=== PATIENT | female | born 1985 | race Caucasian/White ===

== ENCOUNTER 2021-04-07 21:13 | Emergency (ER) | payer OTHER, SELFPAY ==
[2021-04-07 21:22] VITALS: BP 137/90; PULSE 82; RESP 18; TEMP 36.5; O2SAT 100
--- NOTE | 2021-04-07 21:44 | ECG_ITS ---
Measurements Intervals [place] Rate: 52 P: 31 NV: 151 QRS: 41 QRSD: 89 T: 21 QT: 428 QTc: 402 Interpretive Statements SINUS BRADYCARDIA WITH SINUS ARRHYTHMIA BASELINE ARTIFACT- I, II, III, AVR, AVL, AVF, V1 BORDERLINE ECG Electronically Signed On 04-08-2021 6:01:45 CDT by Chester Meedl D.O.
[2021-04-07 22:35] LABS: Basophils Percent Auto 0.5 % (0.2-1.2); Eosinophils Absolute Auto 0.1 K/mm3 (0-0.3); Eosinophils Percent Auto 0.8 % (0-4.4); Hematocrit 38.9 % (37.0-47.0); Hemoglobin 13.4 g/dL (12.0-15.0); Immature Granulocyte Absolute 0.03 K/mm3 (0.00-0.031); Immature Granulocyte Percent A 0.3 % (0-0.5); Lymphocytes Absolute Auto 2.84 K/mm3 (0.9-3.2); Lymphocytes Percent Auto 32.1 % (18.3-44.2); Mean Corpuscular HGB Conc 34.4 g/dl (32-36); Mean Corpuscular Hemoglobin 32.8 pg (26-34); Mean Corpuscular Volume 95.1 fl (80-100); Mean Platelet Volume 9.8 fl (7.4-10.4); Monocytes Absolute Auto 0.4 K/mm3 (0.1-0.6); Neutrophils Absolute Auto 5.4 K/mm3 (1.3-6.7); Neutrophils Percent Auto 61.3 % (45.5-73.1); Platelet Count Result 233 k/mm3 (150-375); Red Blood Count 4.09 M/mm3 (4.2-5.4); Red Cell Distribution Width 12.3 % (11.5-14.5); White Blood Count 8.9 K/mm3 (4.5-10.0)
[2021-04-07 22:44] LABS: Add Urine Microscopic? YES; Appearance Urine Cloudy (Clear); Bilirubin Urine 1+ (Negative); Blood Urine Negative (Negative); Color Urine Amber (Yellow); Glucose Urine UA Negative (Negative); Ketones Urine 1+ mg/dL (Negative); Leukocyte Esterase Ur Negative LEU/UL (Negative); Mucus Urine Heavy /lpf; Nitrate Urine Negative (Negative); Protein Urine 1+ mg/dL (Negative); Specific Grav Ur 1.028 (1.001-1.035); Squamous Epithelial Cell Urine Many /hpf (Few); WBC Urine 0-3 /hpf
[2021-04-07 22:49] LABS: Acetaminophen < 10 ug/mL (10-30); Alanine Aminotransferase 12 U/L (4-35); Albumin Level 4.3 g/dL (3.5-5.1); Alkaline Phosphatase 67 U/L (38-126); Anion Gap 11 mmol/L (8-16); Aspartate Amino Transferase 23 U/L (14-36); Bilirubin,Total 1.4 mg/dL (0.2-1.3); Blood Urea Nitrogen 12 mg/dL (7-17); Calcium 9.7 mg/dL (8.4-10.2); Carbon Dioxide 28 mmol/L (22-30); Chloride 102 mmol/L (98-107); Estimated CRCL calculation 66 ml/min; Estimated Glomerular Filt Rate 57; Ethanol < 10 mg/dL (<10); Glucose 92 mg/dL (65-105); Potassium 3.5 mmol/L (3.4-5.0); Salicylate < 1.0 mg/dL (2-20); Sodium 141 mmol/L (137-145)
--- NOTE | 2021-04-07 23:03 | ED.GENADULT ---
HPI - General Adult General Chief complaint: Psychiatric Symptoms Stated complaint: psych eval Time Seen by Provider: 04/07/21 21:45 History of Present Illness HPI narrative: Patient 35-year-old female who presents the emergency department with chief complaint of depression. Patient reports that she has been under a lot of stress lately and has been having thoughts of harming herself. Patient states that she plans to overdose states that she is feeling very overwhelmed with the stressors in her life and is currently on a antidepressant and also an anxiolytic medication. The patient reports she is not actively attempted to harm herself and reports that she wants help. Patient reports that she has had somatic symptoms with her depression has had previous episodes like this before in the past and has had nausea and vomiting. The patient states she had decreased p.o. intake since she has become progressively more depressed. Related Data Home Medications Medication Instructions Recorded Confirmed clonazepam 04/07/21 04/07/21 duloxetine mg PO 04/07/21 Allergies Allergy/AdvReac Type Severity Reaction Status Date / Time No Known Allergies Allergy Verified 04/07/21 21:28 Review of Systems Review of Systems: Narrative: A 10 system review of systems was completed on the patient and is negative except for what is stated in the HPI. Nursing and ancillary documentation was reviewed. PMFSH Past Medical History Medical History Depression Surgical History Surgical History History of wisdom tooth extraction Social History Social History Smoking packs per day: 0.5 Smoking cigarettes per day: 10.0 Smoking status: Current every day smoker Substance use type: unknown Gender identity (if verbalized by the patient): Female Exam Narrative: Exam Narrative: GENERAL: Well-appearing, well-nourished, and in no acute distress. HEAD: Normocephalic, atraumatic. EYES: PERRLA and EOMI. ENT: Nares clear, no rhinorrhea or epistaxis. Mucous membranes moist. NECK: Supple. CHEST: Clear to auscultation. No respiratory distress. HEART: Regular rate and rhythm. No murmur heard. Normal peripheral pulses. ABDOMEN: Soft, nontender, nondistended, normal active bowel sounds. EXTREMITIES: Normal range of motion. No edema. SKIN: Warm, dry, no rash. NEURO: No focal deficits. Alert and oriented x3. PSYCH: Normal mood and affect. Course Course Emergency Course: EKG is sinus bradycardia rate of [address] elevation or ST depression noted Patient is medically cleared for psychiatric evaluation Patient was seen by the mental health screener and was cleared for outpatient follow-up and was able to contract for safety Vital Signs Vital signs: Vital Signs Temperature 36.5 C 04/07/21 21:22 Pulse Rate 82 04/07/21 21:22 Respiratory Rate 18 04/07/21 21:22 Blood Pressure 137/90 04/07/21 21:22 Pulse Oximetry 100 04/07/21 21:22 Temperature 36.5 C 04/07/21 21:22 Pulse Rate 82 04/07/21 21:22 Respiratory Rate 18 04/07/21 21:22 Blood Pressure 137/90 04/07/21 21:22 Pulse Oximetry 100 04/07/21 21:22 Medical Decision Making Vital Signs Vital Signs: Vital Signs Temperature 36.5 C 04/07/21 21:22 Pulse Rate 82 04/07/21 21:22 Respiratory Rate 18 04/07/21 21:22 Blood Pressure 137/90 04/07/21 21:22 Pulse Oximetry 100 04/07/21 21:22 Temperature 36.5 C 04/07/21 21:22 Pulse Rate 82 04/07/21 21:22 Respiratory Rate 18 04/07/21 21:22 Blood Pressure 137/90 04/07/21 21:22 Pulse Oximetry 100 04/07/21 21:22 Lab Data Result diagrams: 04/07/21 22:21 04/07/21 22:21 Labs: Lab Results 04/07/21 04/07/21 04/07/21 Range/Units 22:21 22:21 22:21 WBC 8.9 (4.5-10.0
[2021-04-07 23:11] LABS: Amphetamine Screen Urine Negative (Negative); Barbiturate Screen Urine Negative (Negative); Benzodiazepines Screen Urine Negative (Negative); Cannabinoid Screen Urine Positive (Negative); Cocaine Screen Urine Negative (Negative); Methadone Screen Urine Negative (Negative); Opiate Screen Urine Negative (Negative); Phencyclidine Screen Urine Negative (Negative)
[2021-04-08] MEDS: ACETAMINOPHEN 500 MG TABLET 1000 MG PO (00:46)
[2021-04-08 01:07] VITALS: BP 128/76; PULSE 78; RESP 16; TEMP 36.2; O2SAT 98
== END 2021-04-08 01:08 | disposition home or self-care (01) ==
PROVIDERS: Emergency Provider Emergency Medicine; PCP Family Medicine
DX: F32.9 Major depressive disorder, single episode, unspecified (principal); F17.210 Nicotine dependence, cigarettes, uncomplicated; R00.1 Bradycardia, unspecified
CPT/HCPCS: 36415; 80053; 80307; 81001; 84443; 85025; 93005; 99284; A9270

== ENCOUNTER 2021-04-13 17:36 | Emergency (ER) | payer OTHER, SELFPAY ==
[2021-04-13 17:37] VITALS: BP 132/84; PULSE 120; RESP 18; TEMP 36.6; O2SAT 96
--- NOTE | 2021-04-13 17:45 | PC.NURSE ---
Arrives ambulatory steady gait for eval of R inner ankle bug bite, I hope it's not a tick . Pt has been itching area, scab has formed and surrounding erythema, no oozing noted. Pt had positive suicidal screening in triage (pt was recently seen in ED for SI and has f/u appt tomorrow with psych), SI precautions were initiated, belongings and clothing removed from room and 1:[address] Pt has been calm and cooperative, support person at bedside accompanying pt
--- NOTE | 2021-04-13 18:15 | PC.NURSE ---
ED PA at bedside for assessment.
--- NOTE | 2021-04-13 18:30 | PC.NURSE ---
OK to d/c per ED ROSA [facility], pt has f/u with psych tomorrow. Pt instructed to leave R inner ankle wound [employer]
--- NOTE | 2021-04-13 18:36 | ED.GENADULT ---
HPI - General Adult General Chief complaint: Skin/Abscess/Foreign Body Stated complaint: Bite on leg Time Seen by Provider: 04/13/21 17:45 Source: patient, family and RN notes reviewed Mode of arrival: ambulatory Limitations: no limitations History of Present Illness HPI narrative: Patient a 35-year-old female who presents for wound to the medial aspect of the right ankle patient notes small lesion unsure as to the etiology has been applying antibiotic ointment over the last couple of days with minimal improvement. Patient notes minimal discomfort. Patient with recent psych evaluation but denying any suicidal or homicidal ideation at this time and has follow-up with [place] tomorrow. Related Data Home Medications Medication Instructions Recorded Confirmed clonazepam 04/07/21 04/07/21 duloxetine mg PO 04/07/21 Allergies Allergy/AdvReac Type Severity Reaction Status Date / Time No Known Allergies Allergy Verified 04/07/21 21:28 Review of Systems Review of Systems: All systems reviewed & are unremarkable except as noted in HPI and below PMFSH Past Medical History Medical History Depression Surgical History Surgical History History of wisdom tooth extraction Social History Social History Smoking packs per day: 0.5 Smoking cigarettes per day: 10.0 Smoking status: Current every day smoker Substance use type: unknown Gender identity (if verbalized by the patient): Female Exam Narrative: Exam Narrative: GENERAL: Well-appearing, well-nourished, and in no acute distress. HEAD: Normocephalic, atraumatic. EYES: PERRLA and EOMI. ENT: Nares clear, no rhinorrhea or epistaxis. Mucous membranes moist. CHEST: Clear to auscultation. No respiratory distress. No wheezes rales or rhonchi HEART: Regular rate and rhythm. No murmur heard. EXTREMITIES: Normal range of motion. No edema. SKIN: Warm, dry, no rash. Patient with small half centimeters superficial ulcerated lesion with central scabbing no erythema or drainage NEURO: No focal deficits. Alert and oriented x3. PSYCH: Normal mood and affect. Course Course Emergency Course: Patient in the room no distress aware of case findings treatment plan and diagnosis agreeing to follow-up as instructed Vital Signs Vital signs: Vital Signs Temperature 97.8 F 04/13/21 17:37 Pulse Rate 120 H 04/13/21 17:37 Respiratory Rate 18 04/13/21 17:37 Blood Pressure 132/84 04/13/21 17:37 Pulse Oximetry 96 04/13/21 17:37 Temperature 97.8 F 04/13/21 17:37 Pulse Rate 120 H 04/13/21 17:37 Respiratory Rate 18 04/13/21 17:37 Blood Pressure 132/84 04/13/21 17:37 Pulse Oximetry 96 04/13/21 17:37 Medical Decision Making MDM Narrative Medical decision making narrative: Patient with small skin lesion of the ankle will see Dr. Bah tomorrow chest not felt appropriate for outpatient reevaluation. Patient agrees with this plan Vital Signs Vital Signs: Vital Signs Temperature 97.8 F 04/13/21 17:37 Pulse Rate 120 H 04/13/21 17:37 Respiratory Rate 18 04/13/21 17:37 Blood Pressure 132/84 04/13/21 17:37 Pulse Oximetry 96 04/13/21 17:37 Temperature 97.8 F 04/13/21 17:37 Pulse Rate 120 H 04/13/21 17:37 Respiratory Rate 18 04/13/21 17:37 Blood Pressure 132/84 04/13/21 17:37 Pulse Oximetry 96 04/13/21 17:37 Discharge Plan Discharge Clinical Impression: Visit for wound check Patient Disposition: Home, Self-Care Condition: Stable Instructions: Antibiotic Form, Acute Wounds (ED) Additional Instructions: Follow-up with Dr. Reinoso tomorrow as planned return if symptoms worsen or concerns, any increase in redness swelling pain or fever over 100.5 Any thoughts of harming yourself or others return to emergency department Clean wound wi
[2021-04-13 18:55] VITALS: BP 122/71; PULSE 90; RESP 17; TEMP 36.9; O2SAT 98
== END 2021-04-13 19:00 | disposition home or self-care (01) ==
PROVIDERS: Emergency Provider Emergency Medicine; PCP Family Medicine
DX: L98.9 Disorder of the skin and subcutaneous tissue, unspecified (principal); F32.9 Major depressive disorder, single episode, unspecified; F17.210 Nicotine dependence, cigarettes, uncomplicated
CPT/HCPCS: 99283

== ENCOUNTER 2021-08-02 19:04 | Emergency (ER) | payer OTHER, SELFPAY ==
--- NOTE | ~2021-08-02 | XR_ITS ---
EXAMINATION: XR chest 1V portable INDICATION: Cough TECHNIQUE: Portable AP chest at 2338 hours COMPARISON: None available FINDINGS: There are minimal airspace opacities of the mid and lower lung zones. There is no pleural e ffusion or pneumothorax. The cardiomediastinal silhouette is normal. IMPRESSION: 1. Minimal airspace opacities of the mid and lower lung zones, consistent with atelectasis versus pne umonia. Reviewed, dictated and finalized at location A. IMPRESSION: 1. Minimal airspace opacities of the mid and lower lung zones, consistent with atelectasis versus pneumonia.
--- NOTE | ~2021-08-02 | CT_ITS ---
EXAMINATION: CT brain wo con INDICATION: Headache COMPARISON: None TECHNIQUE: Standard unenhanced head CT. The dose-length product (DLP) was 605.33 mGy-cm. The mA was a djusted according to patient size. Iterative reconstruction technique was employed. FINDINGS: There is no intracranial hemorrhage, acute infarction, or abnormal mass lesion. The ventric les are normal. There is no abnormal mass effect or midline shift. The mcclain-white matter differentiat ion is normal. The basal cisterns are patent. The orbits are normal. The paranasal sinuses, mastoids and calvarium are normal. IMPRESSION: 1. No acute intracranial abnormality. Reviewed, dictated and finalized at location A.
[2021-08-02 19:15] VITALS: BP 129/88; PULSE 88; RESP 17; TEMP 36.4; O2SAT 98
[2021-08-02 19:24] LABS: Basophils Absolute Auto 0.1 K/mm3 (0.0-0.1); Basophils Percent Auto 0.5 % (0.2-1.2); Eosinophils Absolute Auto 0.1 K/mm3 (0-0.3); Eosinophils Percent Auto 0.5 % (0-4.4); Hematocrit 39.3 % (37.0-47.0); Immature Granulocyte Absolute 0.02 K/mm3 (0.00-0.031); Immature Granulocyte Percent A 0.2 % (0-0.5); Lymphocytes Absolute Auto 2.46 K/mm3 (0.9-3.2); Lymphocytes Percent Auto 24.6 % (18.3-44.2); Mean Corpuscular HGB Conc 35.6 g/dl (32-36); Mean Corpuscular Hemoglobin 33.2 pg (26-34); Mean Corpuscular Volume 93.1 fl (80-100); Mean Platelet Volume 9.2 fl (7.4-10.4); Monocytes Absolute Auto 0.5 K/mm3 (0.1-0.6); Monocytes Percent Auto 4.8 % (2.6-8.5); Neutrophils Percent Auto 69.4 % (45.5-73.1); Platelet Count Result 335 k/mm3 (150-375); Red Blood Count 4.22 M/mm3 (4.2-5.4); Red Cell Distribution Width 12.1 % (11.5-14.5)
[2021-08-02 19:34] LABS: Alanine Aminotransferase 12 U/L (4-35); Albumin Level 5.2 g/dL (3.5-5.1); Alkaline Phosphatase 81 U/L (38-126); Anion Gap 14 mmol/L (8-16); Aspartate Amino Transferase 27 U/L (14-36); Bilirubin,Total 1.3 mg/dL (0.2-1.3); Blood Urea Nitrogen 21 mg/dL (7-17); Calcium 10.1 mg/dL (8.4-10.2); Carbon Dioxide 21 mmol/L (22-30); Chloride 106 mmol/L (98-107); Estimated CRCL calculation 72 ml/min; Estimated Glomerular Filt Rate > 60; Glucose 113 mg/dL (65-110); Lipase 92 U/L (23-300); Sodium 141 mmol/L (137-145)
[2021-08-02 23:07] VITALS: BP 126/80; PULSE 91; O2SAT 100
--- NOTE | 2021-08-02 23:34 | ED.GENADULT ---
HPI - General Adult General Chief complaint: Nausea/Vomiting/Diarrhea Stated complaint: Multiple Complaints Time Seen by Provider: 08/02/21 23:23 Source: patient and RN notes reviewed Mode of arrival: ambulatory Limitations: no limitations History of Present Illness HPI narrative: This is a 35 year old female who presents for evaluation of nausea and vomiting. She states she developed sinus congestion over 1 week ago with frontal head pressure. She has been having associated nausea and vomiting for 1 week as well. She was evaluated at an [facility] 1 week ago and she reports being prescribed Zofran. She continues to have nausea and vomiting and she is having a bifrontal headache for 3 days now. She denies focal deficits but reports generalized weakness, lethargy because she has not been able to eat in 1 week. She denies chest pain, sob, diarrhea, fever or abdominal pain. She reports mild cough due to tickle in her throat. COVID + in February 2021. Related Data Home Medications Medication Instructions Recorded Confirmed clonazepam 04/07/21 04/07/21 duloxetine mg PO 04/07/21 Allergies Allergy/AdvReac Type Severity Reaction Status Date / Time No Known Allergies Allergy Verified 08/03/21 00:31 Review of Systems Review of Systems: All systems reviewed & are unremarkable except as noted in HPI and below Constitutional: Constitutional: Denies chills, Reports fatigue and Denies fever(s) Eyes: Eyes: Denies change in vision ENT: Reports nasal congestion Cardiovascular: Cardiovascular: Denies chest pain Respiratory: Respiratory: Reports cough and Denies dyspnea Gastrointestinal: Gastrointestinal: Denies abdominal pain, Denies diarrhea, Reports nausea and Reports vomiting Neurologic: Denies dizziness, Reports headache(s) and Denies focal weakness PMFSH Past Medical History Medical History (Updated 08/03/21 @ 03:00 by Luisa Ramachandran MD) Anxiety Depression Surgical History Surgical History History of wisdom tooth extraction Social History Social History Smoking packs per day: 0.5 Smoking cigarettes per day: 10.0 Smoking status: Current every day smoker Substance use type: unknown Gender identity (if verbalized by the patient): Female Exam Narrative: GENERAL: Well-appearing, well-nourished, and in no acute distress. HEAD: Normocephalic, atraumatic EYES: PERRLA and EOMI, conjunctiva clear without discharge EARS: TM's clear bilaterally without erythema or dullness NOSE: Nares clear, no rhinorrhea or epistaxis THROAT:Mucous membranes moist, Oropharynx normal without erythema, exudate, peritonsillar swelling or fluctuance NECK: Supple, without lymphadenopathy or mass RESPIRATORY: No respiratory distress, Airway patent, Respirations non-labored, Clear to auscultation without rales, rhonchi or wheeze HEART: Regular rate and rhythm. No murmur heard. Normal peripheral pulses. ABDOMEN: Soft, nontender, nondistended, normal active bowel sounds. No masses. No rebound or guarding, No organomegaly. EXTREMITIES: No edema, normal strength with full range of motion. SKIN: Warm, dry, normal color without rash NEURO: Alert and oriented x3. CN 2-12 grossly intact. No focal deficits. PSYCH: Normal mood and affect. Course Reevaluation(s) Reevaluation #1: Patient has been doing better. labs and CT are unremakable unremarkable. She possibly has pneumonia She will be tested for covid Date: 08/03/21 Time: 02:56 Vital Signs Vital signs: Vital Signs Temperature 97.5 F L 08/02/21 19:15 Pulse Rate 88 08/02/21 19:15 Respiratory Rate 17 08/02/21 19:15 Blood Pressure 129/88 08/02/21 19:15 Pulse Oximetry 98 08/02/21 19:15 Temperature 97.5 F L 08/02/21 19:15 Pulse Rate 82 08/03/21 03:10 Respiratory Rate 16 08/03/21 03:10 Blood Pressure 128/82 08/03/21 03:1
[2021-08-03] MEDS: SODIUM CHLORIDE 0.9% IV 1,000 ML 999 ML IV CONT (00:36)
[2021-08-03] MEDS: KETOROLAC 30 MG/ML VIAL (*BKC) IV PUSH (00:37)
[2021-08-03] MEDS: METOCLOPRAMIDE HCL INJ 10 MG/2 ML VIAL IV PUSH (00:38)
[2021-08-03] MEDS: diphenhydrAMINE HCl INJ 50 MG/ML VIAL 25 MG IV PUSH (00:39)
[2021-08-03] MEDS: LORazepam INJ (*CRX) 2 MG/ML VIAL 0.5 MG IV PUSH (01:29)
[2021-08-03 01:45] VITALS: BP 118/75; PULSE 66; RESP 14; O2SAT 100
[2021-08-03 02:41] LABS: Add Urine Microscopic? YES; Appearance Urine Turbid (Clear); Bilirubin Urine 1+ (Negative); Blood Urine Negative (Negative); Color Urine Yellow (Yellow); Glucose Urine UA Negative (Negative); Ketones Urine Trace mg/dL (Negative); Leukocyte Esterase Ur Negative LEU/UL (Negative); Mucus Urine Heavy /lpf; Nitrate Urine Negative (Negative); Protein Urine 2+ mg/dL (Negative); Squamous Epithelial Cell Urine Many /hpf (Few)
[2021-08-03 02:54] LABS: Specific Grav Ur 1.034 (1.001-1.035)
[2021-08-03 03:10] VITALS: BP 128/82; PULSE 82; RESP 16; O2SAT 98
[2021-08-04 01:27] LABS: SARS-CoV-2 RNA PCR Negative
== END 2021-08-03 03:09 | disposition home or self-care (01) ==
PROVIDERS: Emergency Medicine; Emergency Provider General Practice; PCP Family Medicine
DX: J18.9 Pneumonia, unspecified organism (principal); R51.9 Headache, unspecified; E86.0 Dehydration; Z20.822 Contact with and (suspected) exposure to COVID-19; F17.210 Nicotine dependence, cigarettes, uncomplicated
CPT/HCPCS: 36415; 70450; 71045; 80053; 81001; 81025; 83690; 85025; 96361; 96374; 96375; 99284; C9803; J1200; J1885; J2060; J2765; J7030; U0003; U0005

== ENCOUNTER 2021-10-03 14:14 | Emergency (ER) | payer OTHER, SELFPAY ==
--- NOTE | ~2021-10-03 | XR_ITS ---
XR chest 1V portable 10/03/2021 15:54 Indication: Cough and body aches Procedure: AP portable chest Comparison: 08/02/2021 Findings: Heart size normal. No focal air space disease, pulmonary edema, pleural effusion or suspect ed pneumothorax. No acute osseous abnormality. Impression: 1: No acute cardiopulmonary disease. Reviewed, dictated and finalized at location A. [employer] STUDIES DIRECTOR Impression: 1: No acute cardiopulmonary disease.
[2021-10-03 14:26] VITALS: BP 111/82; PULSE 108; RESP 17; TEMP 37.2; O2SAT 98
[2021-10-03] MEDS: SODIUM CHLORIDE 0.9% IV 1,000 ML 999 ML IV CONT (15:51)
[2021-10-03] MEDS: ONDANSETRON INJ 4 MG/2 ML VIAL IV PUSH (15:51)
[2021-10-03 15:59] LABS: Basophils Percent Auto 0.5 % (0.2-1.2); Eosinophils Percent Auto 0.7 % (0-4.4); Hematocrit 38.4 % (37.0-47.0); Hemoglobin 13.2 g/dL (12.0-15.0); Immature Granulocyte Absolute 0.02 K/mm3 (0.00-0.031); Immature Granulocyte Percent A 0.3 % (0-0.5); Lymphocytes Absolute Auto 1.08 K/mm3 (0.9-3.2); Lymphocytes Percent Auto 17.7 % (18.3-44.2); Mean Corpuscular HGB Conc 34.4 g/dl (32-36); Mean Corpuscular Hemoglobin 32.6 pg (26-34); Mean Corpuscular Volume 94.8 fl (80-100); Mean Platelet Volume 9.7 fl (7.4-10.4); Monocytes Absolute Auto 0.4 K/mm3 (0.1-0.6); Monocytes Percent Auto 6.7 % (2.6-8.5); Neutrophils Absolute Auto 4.5 K/mm3 (1.3-6.7); Neutrophils Percent Auto 74.1 % (45.5-73.1); Platelet Count Result 160 k/mm3 (150-375); Red Blood Count 4.05 M/mm3 (4.2-5.4); Red Cell Distribution Width 11.4 % (11.5-14.5); White Blood Count 6.1 K/mm3 (4.5-10.0)
[2021-10-03 16:09] LABS: Anion Gap 7 mmol/L (8-16); Blood Urea Nitrogen 13 mg/dL (7-17); Calcium 9.3 mg/dL (8.4-10.2); Carbon Dioxide 26 mmol/L (22-30); Chloride 100 mmol/L (98-107); Estimated CRCL calculation 80 ml/min; Estimated Glomerular Filt Rate > 60; Glucose 101 mg/dL (65-110); Potassium 3.6 mmol/L (3.4-5.0); Sodium 133 mmol/L (137-145)
[2021-10-03 16:55] LABS: Add Urine Microscopic? YES; Appearance Urine Cloudy (Clear); Bilirubin Urine 1+ (Negative); Blood Urine Negative (Negative); Color Urine Amber (Yellow); Glucose Urine UA Negative (Negative); Ketones Urine Trace mg/dL (Negative); Leukocyte Esterase Ur Trace LEU/UL (Negative); Mucus Urine Heavy /lpf; Nitrate Urine Negative (Negative); Protein Urine 2+ mg/dL (Negative); RBC Urine 21-50 /hpf (0-2); Specific Grav Ur 1.029 (1.001-1.035); Squamous Epithelial Cell Urine Many /hpf (Few); WBC Urine 16-20 /hpf
--- NOTE | 2021-10-03 17:33 | ED.GENADULT ---
HPI - General Adult General Chief complaint: Upper Respiratory Infection Stated complaint: covid symptoms Time Seen by Provider: 10/03/21 15:28 History of Present Illness HPI narrative: Patient is a 35-year-old who presents ER with multiple issues. 2 days ago she began having subjective fevers as well as chills and fatigue. She is having cramping of her back and neck. She is also experiencing urinary frequency and dysuria. She also endorses nausea and vomiting. No diarrhea. No abdominal pain. No known sick contacts. Concerned she could have Covid but this feels different than when she had Covid in February. Related Data Home Medications Medication Instructions Recorded Confirmed clonazepam 04/07/21 04/07/21 duloxetine mg PO 04/07/21 Allergies Allergy/AdvReac Type Severity Reaction Status Date / Time No Known Allergies Allergy Verified 10/03/21 14:26 Review of Systems Review of Systems: All systems reviewed & are unremarkable except as noted in HPI and below Constitutional: Constitutional: Reports chills, Reports fatigue and Reports fever(s) Cardiovascular: Cardiovascular: Denies chest pain, Denies rapid heart rate and Denies radiating jaw, neck or arm pain Respiratory: Respiratory: Denies cough and Denies dyspnea Gastrointestinal: Gastrointestinal: Denies abdominal pain, Reports nausea and Reports vomiting Genitourinary: Genitourinary: Denies abnormal vaginal bleeding, Reports nocturia, Reports dysuria and Denies flank pain PMFSH Past Medical History Medical History (Updated 10/03/21 @ 17:37 by Lon Simmons MD) Anxiety Depression Surgical History Surgical History History of wisdom tooth extraction Social History Social History Smoking packs per day: 0.5 Smoking cigarettes per day: 10.0 Smoking status: Current every day smoker Substance use type: unknown Gender identity (if verbalized by the patient): Female Exam Narrative: GENERAL: Well-appearing, well-nourished, and in no acute distress. HEAD: Normocephalic, atraumatic. CHEST: Clear to auscultation. No respiratory distress. HEART: Regular rate and rhythm. Normal peripheral pulses. ABDOMEN: Soft, nontender, nondistended. Back: No reproducible midline or paraspinal muscular tenderness. EXTREMITIES: Normal range of motion. No edema. SKIN: Warm, dry, no rash. NEURO: Alert and oriented x3. PSYCH: Normal mood and affect. Course Course Emergency Course: Unremarkable evaluation. Hydrated and feels improved. Discharge with oral antibiotics for possible UTI. Covid test pending. Vital Signs Vital signs: Vital Signs Temperature 99 F 10/03/21 14:26 Pulse Rate 108 H 10/03/21 14:26 Respiratory Rate 17 10/03/21 14:26 Blood Pressure 111/82 10/03/21 14:26 Pulse Oximetry 98 10/03/21 14:26 Temperature 99 F 10/03/21 14:26 Pulse Rate 108 H 10/03/21 14:26 Respiratory Rate 17 10/03/21 14:26 Blood Pressure 111/82 10/03/21 14:26 Pulse Oximetry 98 10/03/21 14:26 Medical Decision Making Vital Signs Vital Signs: Vital Signs Temperature 99 F 10/03/21 14:26 Pulse Rate 108 H 10/03/21 14:26 Respiratory Rate 17 10/03/21 14:26 Blood Pressure 111/82 10/03/21 14:26 Pulse Oximetry 98 10/03/21 14:26 Temperature 99 F 10/03/21 14:26 Pulse Rate 108 H 10/03/21 14:26 Respiratory Rate 17 10/03/21 14:26 Blood Pressure 111/82 10/03/21 14:26 Pulse Oximetry 98 10/03/21 14:26 Lab Data Result diagrams: 10/03/21 15:49 10/03/21 15:49 Labs: Lab Results 10/03/21 10/03/21 10/03/21 Range/Units 15:49 15:49 15:49 WBC 6.1 (4.5-10.0) K/mm3 RBC 4.05 L (4.2-5.4) M/mm3 Hgb 13.2 (12.0-15.0) g/dL Hct 38.4 (37.0-47.0) % MCV 94.8 (80-100) fl MCH 32.6 (26-34) pg MCHC 34.4 (32-36) g/dl RDW 11.4 L (11.5-14.5)
[2021-10-03 18:12] VITALS: BP 122/76; PULSE 73; RESP 16; O2SAT 98
[2021-10-04 20:05] LABS: SARS-CoV-2 RNA PCR Negative
== END 2021-10-03 18:15 | disposition home or self-care (01) ==
PROVIDERS: Emergency Provider Emergency Medicine; PCP Family Medicine
DX: N39.0 Urinary tract infection, site not specified (principal); Z20.822 Contact with and (suspected) exposure to COVID-19; F41.9 Anxiety disorder, unspecified; F32.A Depression, unspecified; F17.210 Nicotine dependence, cigarettes, uncomplicated
CPT/HCPCS: 36415; 71045; 80048; 81001; 85025; 87086; 87088; 96361; 96374; 99284; C9803; J2405; J7030; U0003; U0005

== ENCOUNTER 2022-02-09 18:21 | Emergency (ER) | payer OTHER, SELFPAY ==
[2022-02-09 18:30] VITALS: BP 135/80; PULSE 111; RESP 16; TEMP 36.9; O2SAT 100
--- NOTE | 2022-02-09 18:30 | ED.URI ---
HPI - URI/Sore Throat General Chief Complaint: Nausea/Vomiting/Diarrhea Stated Complaint: VOMITING Time Seen by Provider: 02/09/22 18:25 Source: patient and RN notes reviewed History of Present Illness HPI Narrative: Patient is a 36-year-old female who presents the urgent care with complaints of vomiting and nausea. Patient also reports of a runny nose they. States that the last thing she ate was out of the restaurant and ate potato skins. Patient states that her symptoms have improved however she has missed work now for a few days. States that she has not vomited in the last 24 hours. Patient also reports of fatigue. States that she has not had an appetite but has been able to keep down fluids. Currently denies of any abdominal pain or diarrhea. Denies any recent fevers. No other acute complaints. No acute distress noted. Patient aware of the plan of care. Some parts of this dictation were generated by voice recognition software and may contain typographical and/or grammatical inaccuracies. Related Data Home Medications Medication Instructions Recorded Confirmed clonazepam 04/07/21 04/07/21 duloxetine mg PO 04/07/21 Allergies Allergy/AdvReac Type Severity Reaction Status Date / Time No Known Allergies Allergy Verified 10/03/21 14:26 Review of Systems Review of Systems: CONSTITUTIONAL: Denies fever, chills, or sweats. EYES: Denies visual changes, redness, or discharge. ENT: Denies congestion, sore throat, or otalgia. Reports of rhinorrhea CARDIOVASCULAR: Denies chest pain, palpitations, or edema. RESPIRATORY: Denies cough or dyspnea. GASTROINTESTINAL: Reports of intermittent nausea and vomiting GENITOURINARY: Denies dysuria or hematuria. SKIN: Denies rash or itching. MUSCULOSKELETAL: Denies back pain, joint pain, or myalgia. NEUROLOGIC: Denies headache, numbness, or weakness. All other systems reviewed are negative, except as documented in HPI. [facility] Past Medical History Medical History (Updated 02/09/22 @ 18:55 by JORDEN Galindo) Anxiety Depression Surgical History Surgical History History of wisdom tooth extraction Social History Social History Smoking packs per day: 0.5 Smoking cigarettes per day: 10.0 Smoking status: Current every day smoker Substance use type: unknown Gender identity (if verbalized by the patient): Female Comments At the time of my signature, I reviewed and agree with the nursing past medical, surgical, social, and family history. There is no relevant family history pertinent to the patient complaint. Exam Narrative: GENERAL: This is a well-nourished, well-developed patient, in no apparent distress. HEAD: normocephalic, atraumatic. EYES: PERRL. Sclera clear/white. Vision is grossly intact. EARS: External ears normal, auditory canals clear and without drainage, TMs normal without perforation. Hearing grossly intact. NOSE: External nose normal with no obvious nasal discharge, nares without redness, no rhinorrhea. THROAT: Mucous membranes moist, posterior pharynx clear. Moderate postnasal drainage NECK: Neck supple CARDIOVASCULAR: Regular rate and rhythm without murmurs, gallops, or rubs. RESPIRATORY: Clear to auscultation. Breath sounds equal bilaterally. No wheezes, rales, or rhonchi. GASTROINTESTINAL: Abdomen soft, non-tender, nondistended. Bowel sounds are hyper active. No hepato-splenomegaly, or palpable masses. No guarding. SKIN: warm, intact with no suspicious lesions or rash, good texture and turgor. NEURO: awake, alert, and oriented to person, place and time. There were no obvious focal neurologic abnormalities. EXTREMITIES: No clubbing, cyanosis, or edema. Course Course Level of Care: Express Care Visit Vital Signs Vital signs: Vital Signs Temperature 98.5 F 02/09/22 18:30 Pulse Rate 111 H 02/09/22 18:30 Respiratory Rate
== END 2022-02-09 19:00 | disposition home or self-care (01) ==
PROVIDERS: Emergency Provider Nurse Practitioner Family; PCP Family Medicine
DX: R11.2 Nausea with vomiting, unspecified (principal); F17.210 Nicotine dependence, cigarettes, uncomplicated; F41.9 Anxiety disorder, unspecified
CPT/HCPCS: 87804; 99213; G0463

== ENCOUNTER 2022-02-19 11:36 | Emergency (ER) | payer OTHER, SELFPAY ==
[2022-02-19 11:54] VITALS: BP 131/77; PULSE 86; RESP 16; TEMP 36.6; O2SAT 99
--- NOTE | 2022-02-19 12:00 | ED.GENADULT ---
HPI - General Adult General Chief complaint: Urogenital-Female Stated complaint: std testing Source: patient Mode of arrival: ambulatory Limitations: no limitations History of Present Illness HPI narrative: Patient presents requesting STD testing. She states she had unprotected vaginal intercourse two weeks ago. She is only sexually active with men. Denies recent oral/anal intercourse. She denies any vaginal bleeding/discharge, sore throat, rectal pain, abdominal pain, fever, chills, nausea, or vomiting. She has an IUD and, therefore, is unsure date of LMP. She does not believe that male sex partner is symptomatic. She denies any additional complaints or concerns. Related Data Home Medications Medication Instructions Recorded Confirmed clonazepam 04/07/21 04/07/21 duloxetine mg PO 04/07/21 Allergies Allergy/AdvReac Type Severity Reaction Status Date / Time No Known Allergies Allergy Verified 10/03/21 14:26 Review of Systems Review of Systems: CONSTITUTIONAL: Denies fever, chills, or sweats. EYES: Denies visual changes, redness, or discharge. ENT: Denies rhinorrhea, congestion, sore throat, or otalgia. CARDIOVASCULAR: Denies chest pain, palpitations, or edema. RESPIRATORY: Denies cough or dyspnea. GASTROINTESTINAL: Denies abdominal pain, nausea, vomiting, or diarrhea. GENITOURINARY: Denies dysuria or hematuria. SKIN: Denies rash or itching. MUSCULOSKELETAL: Denies back pain, joint pain, or myalgia. NEUROLOGIC: Denies headache, numbness, dizziness, or weakness. PSYCHIATRIC: Denies anxiety or depression. [facility] Past Medical History Medical History Anxiety Depression Surgical History Surgical History History of wisdom tooth extraction Family History Family History Mother No significant past medical history Social History Social History Smoking packs per day: 0.5 Smoking cigarettes per day: 10.0 Smoking status: Current every day smoker Alcohol intake: current Alcohol use details: intermittent ETOH abuse Substance use type: unknown Gender identity (if verbalized by the patient): Female Sexual Orientation (if Verbalized by the Patient): Straight or Heterosexual Spiritual care concerns: No Exam Narrative: GENERAL: Well-appearing, well-nourished, and in no acute distress. HEAD: Normocephalic, atraumatic. EYES: PERRLA and EOMI. ENT: Nares clear, no rhinorrhea or epistaxis. Mucous membranes moist. Oropharynx without tonsillar hypertrophy exudate or other lesions. Bilateral TMs pearly mcclain nonbulging NECK: Supple. No adenopathy or masses. No carotid bruits or JVD CHEST: Clear to auscultation. No respiratory distress. No wheezes rales or rhonchi HEART: Regular rate and rhythm. No murmur heard. Normal peripheral pulses. ABDOMEN: Soft, nontender, nondistended, normal active bowel sounds. EXTREMITIES: Normal range of motion. No edema. SKIN: Warm, dry, no rash. NEURO: No focal deficits. Alert and oriented x3. PSYCH: Normal mood and affect. Course Course Emergency Course: Urine dipstick performed without evidence of infection. She does not have any vaginal discharge or sore throat. I offered to perform pelvic exam. She preferred to run testing off urine. She should have comprehensive STI testing performed. She should follow up outpatient for further evaluation and treatment and return for worsening symptoms. Pt in agreement with plan of care. Level of Care: Express Care Visit Vital Signs Vital signs: Vital Signs Temperature 36.6 C 02/19/22 11:54 Pulse Rate 86 02/19/22 11:54 Respiratory Rate 16 02/19/22 11:54 Blood Pressure 131/77 02/19/22 11:54 Pulse Oximetry 99 02/19/22 11:54 Temperature 36.6 C 02/19/22 11:54 Pulse
== END 2022-02-19 12:06 | disposition home or self-care (01) ==
PROVIDERS: Emergency Provider Nurse Practitioner; PCP Family Medicine
DX: Z11.3 Encounter for screening for infections with a predominantly sexual mode of transmission (principal); F17.210 Nicotine dependence, cigarettes, uncomplicated; F41.9 Anxiety disorder, unspecified
CPT/HCPCS: 81003; 87491; 87591; 87661; 99214; G0463

== ENCOUNTER 2022-06-01 20:14 | Emergency (ER) | payer OTHER, SELFPAY ==
--- NOTE | ~2022-06-01 | XR_ITS ---
EXAM: [id number] DATE: 06/01/2022 21:53 HISTORY: NECK PAIN, NO KNOWN INJURIES . COMPARISON: None available. FINDINGS: Craniocervical association and atlantoaxial joint are normal. No prevertebral soft tissue swelling. Focal cervical kyphosis centered at C3-4. 3 mm anterolisthesis of C3 on C4. Mild disc heigh t loss at C4-5 and C5-6, with mild marginal osteophytosis at C4-5. Multilevel mild uncovertebral join t hypertrophy. Normal facets and posterior elements. IMPRESSION: No definite acute fracture or traumatic malalignment in the cervical spine. Grade 1 anter olisthesis of C3 on C4, presumably on a degenerative basis. Mild mid cervical spine degenerative disc disease. Reviewed, dictated and finalized at location K. IMPRESSION: No definite acute fracture or traumatic malalignment in the cervica l spine. Grade 1 anterolisthesis of C3 on C4, presumably on a degenerative basi s. Mild mid cervical spine degenerative disc disease.
[2022-06-01 20:20] VITALS: BP 147/98; PULSE 80; RESP 18; TEMP 36.4; O2SAT 100
--- NOTE | 2022-06-01 20:56 | ED.NECK ---
HPI - Neck Pain/Injury General Chief Complaint: Neck Pain/Injury Stated Complaint: neck pain Time Seen by Provider: 06/01/22 20:34 History of Present Illness HPI Narrative: Patient is a 36-year-old female here for evaluation of atraumatic neck pain for the past 4 days. States that the pain has come on gradually, is present in her paraspinal muscles in her cervical spine, worse with turning her head. Feels like a muscle tightness; has been very active recently, states she has been chasing her kids around. Patient came into the ED today because she now has a diffuse headache, worse across her forehead. No visual changes, fevers, chills, nausea, vomiting, abdominal pain. No history of IVDU. Related Data Home Medications Medication Instructions Recorded Confirmed clonazepam 1 mg tablet 04/07/21 04/07/21 duloxetine 60 mg capsule,delayed mg PO 04/07/21 release Allergies Allergy/AdvReac Type Severity Reaction Status Date / Time No Known Allergies Allergy Verified 06/01/22 20:24 Review of Systems Review of Systems: Gen: Denies fevers or chills Eyes: Denies eye pain or visual change ENT: Denies congestion Respiratory: Denies shortness of breath or cough CV: Denies chest pain or palpitations GI: Denies abdominal pain nausea, emesis or diarrhea : denies burning, urgency, frequency or hematuria Musculoskeletal: Reports neck pain. Neuro: Reports neck pain, headache. Denies numbness, tingling, weakness or focal weakness Skin: Denies rash Except as documented, all other systems reviewed and negative [facility] Past Medical History Medical History Anxiety Depression Surgical History Surgical History History of wisdom tooth extraction Family History Family History Mother No significant past medical history Social History Social History Smoking packs per day: 0.5 Smoking cigarettes per day: 10.0 Smoking status: Current every day smoker Alcohol intake: current Alcohol use details: intermittent ETOH abuse Substance use type: unknown Gender identity (if verbalized by the patient): Female Sexual Orientation (if Verbalized by the Patient): Straight or Heterosexual Spiritual care concerns: No Exam Narrative: APPEARANCE: Well appearing, no pain in distress, well-nourished. Head: Normocephalic and atraumatic. EYES: PERRLA/EOMI, conjunctivae clear NOSE: No nasal drainage EARS: External ear normal in appearance THROAT: Oropharynx is clear. Mucous membranes are moist. NECK: Supple. No adenopathy, no masses. No meningismus. RESPIRATORY: Airway patent, respirations nonlabored. Clear to auscultation bilaterally, no rales, rhonchi, wheezing. CARDIOVASCULAR: Regular rate and rhythm without murmurs, rubs, or gallops. ABDOMINAL: Normoactive bowel sounds. Soft, nontender, nondistended. No rebound tenderness or guarding. MUSCULOSKELETAL: No midline tenderness along C-spine. Cervical paraspinal muscles are tight. Full range of motion in neck. NEURO: Cranial nerves II through XII intact. Normal speech. SKIN: Skin is warm and dry. No rashes. PSYCHIATRIC: Normal affect/mood. Course Vital Signs Vital signs: Vital Signs Temperature 97.5 F L 06/01/22 20:20 Pulse Rate 80 06/01/22 20:20 Respiratory Rate 18 06/01/22 20:20 Blood Pressure 147/98 H 06/01/22 20:20 Pulse Oximetry 100 06/01/22 20:20 Oxygen Delivery Room Air 06/01/22 20:20 Temperature 97.5 F L 06/01/22 20:20 Pulse Rate 80 06/01/22 20:20 Respiratory Rate 16 06/01/22 23:05 Blood Pressure 147/85 H 06/01/22 23:05 Pulse Oximetry 98 06/01/22 23:05 Oxygen Delivery Room Air 06/01/22 20:20 MDM - Neck Pain/Injury MDM Narrative Medical decision making narrative: 36-year-old
[2022-06-01] MEDS: KETOROLAC 15 MG/ML VIAL (*BKC) IV PUSH (21:02)
[2022-06-01] MEDS: SODIUM CHLORIDE 0.9% IV 1,000 ML 999 ML IV CONT (21:02)
[2022-06-01] MEDS: CYCLOBENZAPRINE HCL 10 MG TABLET PO (21:58)
[2022-06-01] MEDS: PROCHLORPERAZINE EDISYLATE 10 MG/2 ML VIAL IV PUSH (22:21)
[2022-06-01] MEDS: diphenhydrAMINE HCl INJ 50 MG/ML VIAL 25 MG IV PUSH (22:21)
[2022-06-01 23:05] VITALS: BP 147/85; RESP 16; O2SAT 98
== END 2022-06-01 23:07 | disposition home or self-care (01) ==
PROVIDERS: Emergency Provider Emergency Medicine; PCP Family Medicine
DX: S16.1XXA Strain of muscle, fascia and tendon at neck level, initial encounter (principal); R51.9 Headache, unspecified; F17.210 Nicotine dependence, cigarettes, uncomplicated; F41.9 Anxiety disorder, unspecified; F32.9 Major depressive disorder, single episode, unspecified; X58.XXXA Exposure to other specified factors, initial encounter
CPT/HCPCS: 72040; 96361; 96372; 96374; 96375; 99284; A9270; J0780; J1200; J1885; J7030

== ENCOUNTER 2022-10-23 14:33 | Emergency (ER) | payer OTHER, SELFPAY ==
[2022-10-23 14:36] VITALS: BP 113/64; PULSE 85; RESP 18; TEMP 36.3; O2SAT 99
[2022-10-23 15:26] LABS: Influenza A QL RT-PCR Negative (Negative); Influenza B QL RT-PCR Negative (Negative); RSV RNA, RT-PCR Negative (Negative); SARS-CoV-2 RNA PCR Negative
--- NOTE | 2022-10-23 16:13 | PC.NURSE ---
Patient did not answer page to be roomed
== END 2022-10-23 16:13 | disposition left against medical advice (07) ==
LOC: ANHED 17:02
PROVIDERS: Emergency Provider Emergency Medicine; PCP Family Medicine
DX: J06.9 Acute upper respiratory infection, unspecified (principal); Z20.822 Contact with and (suspected) exposure to COVID-19
CPT/HCPCS: 87637; 99199

== ENCOUNTER 2024-10-30 13:10 | Emergency (ER) | payer SELFPAY ==
[2024-10-30 13:14] VITALS: BP 125/71; PULSE 77; RESP 18; TEMP 36.6; O2SAT 100
[2024-10-30 13:23] LABS: BEDSIDEPREGUCG Negative (Negative)
--- NOTE | 2024-10-30 13:31 | ED.FEMALEGU ---
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 Reports this has been ongoing over the last week. She was told by a recent partner that she should get tested for STDs yesterday. She is unsure what they tested positive for. Reports dysuria. Related Data Home Medications ?Medication ?Instructions ?Recorded ?Confirmed ?Last Taken ?Type clonazepam 1 mg tablet 04/07/21 04/07/21 Unknown History duloxetine 60 mg capsule,delayed mg PO 04/07/21 Unknown History release Allergies Allergy/AdvReac Type Severity Reaction Status Date / Time No Known Allergies Allergy Verified 10/30/24 13:20 Review of Systems Review of Systems: CONSTITUTIONAL: Denies fever GASTROINTESTINAL: Denies abdominal pain, nausea, vomiting GENITOURINARY: Reports dysuria All systems reviewed & are unremarkable except as noted in HPI and below PMFSH Past Medical History Medical History Anxiety Depression Surgical History Surgical History History of wisdom tooth extraction Family History Family History Mother No significant past medical history Social History Social History Smoking packs per day: 0.5 Smoking cigarettes per day: 10.0 Smoking status: Current every day smoker Alcohol intake: current Alcohol use details: intermittent ETOH abuse Substance use type: unknown Gender identity (if verbalized by the patient): Female Sexual Orientation (if Verbalized by the Patient): Straight or Heterosexual Spiritual care concerns: No Exam Narrative: GENERAL: Well-appearing, well-nourished, and in no acute distress. HEAD: Normocephalic, atraumatic. EYES: EOMI. EXTREMITIES: Normal range of motion. No edema. SKIN: Warm, dry, no rash. NEURO: No focal deficits. Alert and oriented x3. PSYCH: Normal mood and affect PELVIC: Normal external genitalia. Normal appearing cervix. There is small amount of yellow/green discharge. No CMT Course Vital Signs Vital signs: Vital Signs Temperature 97.9 F 10/30/24 13:14 Pulse Rate 77 10/30/24 13:14 Respiratory Rate 18 10/30/24 13:14 Blood Pressure 125/71 10/30/24 13:14 Pulse Oximetry 100 10/30/24 13:14 Oxygen Delivery Room Air 10/30/24 13:14 Temperature 97.9 F 10/30/24 13:14 Pulse Rate 77 10/30/24 13:14 Respiratory Rate 18 10/30/24 13:14 Blood Pressure 125/71 10/30/24 13:14 Pulse Oximetry 100 10/30/24 13:14 Oxygen Delivery Room Air 10/30/24 13:14 MDM - Female Genitourinary MDM Narrative Medical decision making narrative: Patient presents to the emergency department for STD check. She is afebrile and nontoxic appearing. UA with trace leuk esterase and 6-10 white blood cells, this was sent for culture. Genital culture sent. Chlamydia, gonorrhea Trichomonas are negative. test is negative. Patient will be started on Macrobid for possible UTI. She is to follow up with primary provider. She was given warnings to return to the ER Differential Diagnosis Differential diagnosis: Likely bacterial vaginosis, trichomoniasis, vaginitis, cystitis and other (Chlamydia, gonorrhea) Lab Data Attestation: I reviewed the patient's lab results. Labs: Lab Results 10/30/24 10/30/24 10/30/24 Range/Units 13:21 13:37 13:39 Urine Color Yellow (Yellow) Urine Appearance Clear (Clear) Urine pH 5.5 (5.0-9.0) Ur Specific [place] 1.025 (1.001-1.035) Urine Protein Trace (Negative) mg/dL Urine Glucose (UA) Negative (Negative) mg/dL Urine Ketones Trace H (Negative) mg/dL Ur Blood (Man) Negative (Negative) Urine Nitrate Negative (Negative) Urine Bilirubin Negative (Negative) Urine Urobilinogen 1.0 (<2.0) mg/dL Add Ur Microanalysis Reviewed Leukocyte Esterase Rfl Trace H (Negative) TYREE/UL Urine RBC 0-2 (0-2) /hpf Urine WBC 6-10 H (0-3) /hpf Ur Squamous Epith Cells Moderate (Few) /hpf Urine Bacteria Rare /hpf Urine Casts 0-2 POC Urine HCG, Qual Negative (Negative) C. trachomatis (PCR) Not detected (NOT DETECTE) N. gonorrhoeae (PCR) Not detected (NOT DETECTE) T. vaginalis (PCR) Not detected (NOT DETECTE) Bact Vaginosis Panel 10/30/24 Range/Units 13:41 Urine Color (Yellow) Urine Appearance (Clear) Urine pH (5.0-9.0) Ur Specific [place] (1.001-1.035) Urine Protein (Negative) mg/dL Urine Glucose (UA) (Negative) mg/dL Urine Ketones (Negative) mg/dL Ur Blood (Man) (Negative) Urine Nitrate (Negative) Urine Bilirubin (Negative) Urine Urobilinogen (<2.0) mg/dL Add Ur Microanalysis Leukocyte Esterase Rfl (Negative) TYREE/UL Urine RBC (0-2) /hpf Urine WBC (0-3) /hpf Ur Squamous Epith Cells (Few) /hpf Urine Bacteria /hpf Urine Casts POC Urine HCG, Qual (Negative) C. trachomatis (PCR) (NOT DETECTE) N. gonorrhoeae (PCR) (NOT DETECTE) T. vaginalis (PCR) (NOT DETECTE) Bact Vaginosis Panel Pending Critical Care Time Critical Care Time Critical Care Time: No Discharge Plan Discharge Clinical Impression: Acute UTI Patient Disposition: Home, Self-Care Condition: Stable Instructions: Antibiotic Form, Urinary Tract Infection in Women (ED) Additional Instructions: Return to the ER if you experience fever, abdominal pain with nausea and vomiting, you are unable to keep down liquids or solids, or any other symptoms that are concerning to you Remain well hydrated. Take oral antibiotic as prescribed Follow up with primary care doctor Patient Language: Greenlandic Prescriptions: New nitrofurantoin monohyd/m-cryst [Macrobid] 100 mg capsule 100 mg PO Q12H 5 Days Qty: 10 0RF Rx Instructions: must administer with a meal/food No Action metronidazole 500 mg tablet 500 mg PO BID 7 Days Qty: 14 0RF clonazepam 1 mg tablet duloxetine 60 mg capsule,delayed release(DR/EC) PO Follow-up/Referrals: Licha,Hien Kearney MD [Primary Care Provider] -
[2024-10-30 14:04] LABS: Add Urine Microscopic? YES; Appearance Urine Clear (Clear); Bacteria Urine Rare /hpf; Bilirubin Urine Negative (Negative); Blood Urine Negative (Negative); Color Urine Yellow (Yellow); Glucose Urine UA Negative (Negative); Ketones Urine Trace mg/dL (Negative); Leukocyte Esterase Ur Trace LEU/UL (Negative); Need Manual Microscopic Reviewed; Nitrate Urine Negative (Negative); Non Pathogenic Casts 0-2; Protein Urine Trace mg/dL (Negative); RBC Urine 0-2 /hpf (0-2); Specific Grav Ur 1.025 (1.001-1.035); Squamous Epithelial Cell Urine Moderate /hpf (Few); pH Urine 5.5 (5.0-9.0)
[2024-10-30 14:58] LABS: Trichomonas Vag PCR NOT DETECTED (NOT DETECTE)
[2024-10-30 15:20] LABS: Chlamydia trachomatis NOT DETECTED (NOT DETECTE); Neisseria gonorrhoeae PCR NOT DETECTED (NOT DETECTE)
[2024-11-01 09:13] LABS: Bacterial Vaginosis POSITIVE (NEGATIVE)
== END 2024-10-30 15:54 | disposition home or self-care (01) ==
PROVIDERS: Emergency Provider Physician Assistant; PCP Family Medicine
DX: N39.0 Urinary tract infection, site not specified (principal); F17.210 Nicotine dependence, cigarettes, uncomplicated; F41.9 Anxiety disorder, unspecified; F32.A Depression, unspecified
CPT/HCPCS: 81001; 81025; 81513; 87070; 87086; 87491; 87591; 87661; 99284